=== PATIENT | male | born 1980 | race Caucasian/White ===

== ENCOUNTER 2017-04-28 10:44 | Emergency (ER) | payer OTHER ==
[~2017-04-28] VITALS: Ht 182.9 cm; Wt 81.7 kg
[2017-04-28] MEDS ORDERED: NAPROSYN500 MG PO (12:15)
[2017-04-28 12:39] VITALS: BP 140/100
== END 2017-04-28 12:16 | disposition home or self-care (01) ==
LOC: ER 10:44
DX: S63.611A Unspecified sprain of left index finger, initial encounter (principal); F17.210 Nicotine dependence, cigarettes, uncomplicated; F10.99 Alcohol use, unspecified with unspecified alcohol-induced disorder; Z90.49 Acquired absence of other specified parts of digestive tract; Z90.89 Acquired absence of other organs; W23.0XXA Caught, crushed, jammed, or pinched between moving objects, initial encounter; Y93.89 Activity, other specified; Y92.89 Other specified places as the place of occurrence of the external cause; Y99.8 Other external cause status